=== PATIENT | female | born 1950 | race African-American/Black ===

== ENCOUNTER 2021-07-25 21:59 | Emergency (ER) | payer OTHER ==
[~2021-07-25] VITALS: Ht 160 cm; Wt 96.6 kg
[2021-07-25 22:50] LABS: BASOPHILS % 0.1 % (0.0-2.0); EOSINOPHILS % 0.8 % (0.0-5.0); HEMATOCRIT. 36.4 % (36.0-48.0); HEMOGLOBIN. 12.2 g/dL (12.0-16.0); LYMPHOCYTES % 38.4 % (20.0-50.0); MEAN CORPUSCULAR HEMOGLOBIN 26.5 pg (28.0-32.0); MEAN CORPUSCULAR VOLUME 78.8 fL (81.0-99.0); MEAN PLATELET VOLUME 8.2 fl (7.4-10.4); MONOCYTES % 7.8 % (2.0-8.0); NEUTROPHILS % 52.9 % (40.0-76.0); PLATELET 234 x1000/uL (130-400); RED BLOOD CELL COUNT 4.61 mill/uL (4.2-5.4); RED CELL DISTRIBUTION WIDTH 16.3 % (11.6-14.6)
[2021-07-25 22:58] LABS: CHLORIDE 110 mEq/L (98-107)
[2021-07-25 22:59] LABS: PROTHROMBIN TIME 10.4 sec (9.6-11.0)
[2021-07-25] MEDS ORDERED: DILTIAZEM HCL 5MG/ML 5ML VIAL IV ONE (23:00)
[2021-07-25 23:01] LABS: ETHANOL BLOOD < 10 mg/dL
[2021-07-25 23:06] LABS: LDL CHOLESTEROL 90 mg/dL (5-100)
[2021-07-25] MEDS ORDERED: ONDANSETRON HCL 4MG/2ML INJ IV ONE (23:30)
[2021-07-25] MEDS ORDERED: ASPIRIN 325MG EC TABLET PO ONE (23:30)
[2021-07-25] MEDS ORDERED: ATORVASTATIN CALCIUM 40MG TABLET PO SCH (23:30)
[2021-07-25 23:54] LABS: CLARITY URINE CLEAR (CLEAR); COLOR URINE YELLOW (YELLOW); KETONES URINE NEGATIVE (NEGATIVE); LEUKOCYTE ESTERASE URINE NEGATIVE (NEGATIVE); NITRITE URINE NEGATIVE (NEGATIVE); OCCULT BLOOD URINE TRACE (NEGATIVE); PH URINE 5.5 (4.5-8.0); PROTEIN URINE NEGATIVE (NEGATIVE); SPECIFIC GRAVITY URINE 1.036 (1.005-1.030); UROBILINOGEN URINE 0.2 E.U./dL (0.2-1.0)
[2021-07-26 00:16] LABS: OPIATES URINE SCREEN PRESUMTIVE POSITIVE (NEGATIVE)
[2021-07-26 00:17] LABS: *AMPHETAMINES SCREEN URINE NEGATIVE (NEGATIVE); *BARBITURATES SCREEN URINE NEGATIVE (NEGATIVE); *BENZODIAZEPINES SCREEN URINE NEGATIVE (NEGATIVE)
[2021-07-26 00:18] LABS: *COCAINE SCREEN URINE NEGATIVE (NEGATIVE); CANNABINOID URINE SCREEN NEGATIVE (NEGATIVE); METHADONE URINE SCREEN NEGATIVE (NEGATIVE); PHENCYCLIDINE URINE SCREEN NEGATIVE (NEGATIVE)
[2021-07-26 00:30] VITALS: BP 163/77
== END 2021-07-26 00:37 | disposition left against medical advice (07) ==
LOC: ER 21:59 → CANBEDREQ 07-26 07:21
DX: R53.1 Weakness (principal); R29.810 Facial weakness; R47.1 Dysarthria and anarthria; E78.00 Pure hypercholesterolemia, unspecified; Z88.2 Allergy status to sulfonamides
CPT/HCPCS: 36415; 70450; 70496; 70498; 71045; 80053; 80305; 80320; 81003; 83721; 84484; 85025; 85610; 93005; 96374; 99285; J3490; G0480